=== PATIENT | female | born 1970 | race Asian ===

== ENCOUNTER → 2021-10-26 11:58 | Outpatient (CLI) | payer OTHER, SELFPAY ==
[2021-10-26 13:08] LABS: COVID19 -Nasal RAPID Negative (Negative)
== END ==
PROVIDERS: PCP Internal Medicine; Visit Provider Surgery
DX: Z20.822 Contact with and (suspected) exposure to COVID-19 (principal); Z01.812 Encounter for preprocedural laboratory examination
CPT/HCPCS: 87635; C9803

== ENCOUNTER 2021-10-27 06:56 | Day surgery (SDC) | payer OTHER, SELFPAY ==
[2021-10-25 09:46] VITALS: BMI 21.6
[2021-10-27] VITALS (9 sets, daily range): BP systolic 106–143; BP diastolic 66–87; PULSE 56–85; RESP 12–16; TEMP 36.2–36.6; O2SAT 95–100; BMI 21.6
--- NOTE | 2021-10-27 | PATH_ITS ---
[facility] Accession Number: [id number] . 01 Material submitted: . PART A: breast - RIGHT BREAST PART B: lymph node - RIGHT SENTINEL NODES PART C: breast - ANTERIOR MARGIN . 02 Diagnosis: A. Right Mastectomy and [place] Lymph Node Biopsy: Invasive ductal carcinoma. Please see Cancer Case Summary. . B. Right [place] Nodes: Five lymph nodes negative for metastatic carcinoma by immunohistochemistry (0/5). . C. Anterior Margin: Negative for tumor. . . CANCER CASE SUMMARY . Procedure: Total mastectomy and sentinel lymph node dissection. . Specimen laterality: Right. . Tumor Tumor site: Between the upper innner and lower inner quadrants at 3 o'clock position. . Histologic type: Invasive carcinoma of no special type (ductal). . Histologic grade Glandular / tubular differentiation: Score 3/3. Nuclear pleomorphism: Score 1/3. Mitotic rate: Score 1/3. Overall grade: Grade 1 / low grade (score 5/9). . Tumor size: Greatest dimension of largest invasive focus: 12 mm (slices 14-16, 4 mm thickness / slice). Additional dimensions in millimeters: 12 mm x 8 mm (glass slide). . Tumor focality: Single focus of invasive carcinoma. . Carcinoma in situ: Not identified. . Tumor extent: Skin and nipple are uninvolved. . Lymphovascular invasion: Not identified. . Dermal lymphovascular invasion: Not identified. . Microcalcifications: Not identified. . Treatment effect in the breast: No known presurgical therapy. . Treatment effect in lymph nodes: Not applicable. . Margins Margin status for invasive carcinoma: All margins negative for invasive carcinoma. Distance from invasive carcinoma to closest margin: Inclusive of part C, all margins greater than 10 mm from tumor. . Medial: Greater than 10 mm. Lateral: Greater than 10 mm. Posterior: Greater than 10 mm. Superior: Greater than 10 mm. Inferior: Greater than 10 mm. Anterior: Greater than 10 mm. (Specimen A: slices 15 and 16 are 1-4 mm from the anterior/inferior margin. Additional anterior margin submitted as part C. It is presumed that specimen C is additional tissue from this anterior/inferior region; please correlate with operative findings that additional margin part C is from this anterior/inferior region). . Regional lymph nodes Regional lymph node status: Five lymph nodes negative for tumor (0/5). Number of lymph nodes with macrometastasis (greater than 2 mm): 0. Number of lymph nodes with micrometastasis (greater than 0.2 mm to 2 mm and/or greater than 200 cells: 0. Number of lymph nodes with isolated tumor cells: 0. Size of largest michelle metastatic deposit: Not applicable. . Extranodal extension: Not applicable. . Total number of lymph nodes examined (sentinel and non-sentinel): 5. Number of sentinel nodes examined: 5. . Distant metastasis Distant sites: Cannot be determined. . Pathologic stage classification (pTNM, AJCC 8th Edition): pT1c pN0(i). . Additional findings: Biopsy cavity represent in slice 16; no clip identified at gross examination. Patchy fibrocystic changes. . Special studies: Please see microscopic section. . [facility] 11/03/2021 1241 Local . 02 Electronically signed: . Varsha Johnson MD, Pathologist NPI- [id number] . 01 Gross description: . A. Received in a container of formalin labeled right breast, short stitch superior, long stitch lateral is a 192 gram, 12.5 ML x 13.0 SI x 5.0 cm AP skin-sparing simple right mastectomy. There is an overlying 5.0 x 2.5 cm taveras areola, which has a central 1.5 x 1.0 x 0.5 cm erect nipple. There is a short suture attached to the superior edge of the skin and a long suture attached to the lateral edge of the skin. The breast margins are taveras-yellow and shaggy, and are inked as follows: superior anterior orange, inferior anterior blue, and posterior green. The breast is serially sectioned from lateral to medial into twenty-two separate slices. In the superior inner quadrant of the breast in slices 13 through 18, 2.0 cm from the nipple, in the 3 o'clock position, is an ill-defined 3.0 ML x 1.5 SI x 1.5 cm AP white ill-defined mass. The mass comes to within 0.5 cm of the deep margin, 0.5 cm from the superior anterior and inferior anterior margins. In slice 16, there is a 0.3 cm biopsy cavity, however, no biopsy clip is identified. The uninvolved breast tissue consists of 70 percent white fibrous breast tissue and is mainly composed of yellow lobulated adipose tissue. No additional masses are identified. Inside Barrel Polisher sections are submitted as follows: . A1: Normal appearing breast tissue lateral side of mass from slice 12. A2: Lateral extent of mass from slice 13. A3: Mass from slice 14 with biopsy cavity. A4: Mass from slice 15. A5: Mass from slice 16. A6: Mass from slice 17. A7: Mass from slice 18. A8: Normal appearing breast tissue medial side of mass from slice 19. A9: Random superior outer quadrant. A10: Random inferior outer quadrant. A11: Random superior inner quadrant. A12: Random inferior inner quadrant. A13: Nipple and areola. . B. Received in a container of formalin labeled right sentinel nodes are three fragments of fibrofatty tissue measuring 4.0 x 3.0 x 1.5 cm in aggregate dimension. Six lymph node candidates are identified on cut surfaces ranging in size from 0.2 cm to 2.5 cm. The lymph node candidates are entirely submitted labeled: . B1: One bisected lymph node. B2: Three lymph node candidates. B3: One bisected lymph node. B4-B5: One bisected lymph node. . C. Received in a container of formalin labeled anterior margin, stitch suarez true margin is a 21.0 gram, 6.5 x 5.0 x 1.0 cm portion of fibrofatty breast tissue. There is a suture attached to the true margin, and the true margin is inked blue. The specimen is serially sectioned, and there is fibrofatty breast tissue on cut surfaces. No masses or lesions are identified. Every third section is submitted in a sequential fashion in cassettes C1-C8. ([id number]) /[facility] 10/28/2021 1734 Local . 02 Microscopic: . An immunohistochemistry panel is performed on block A4 to further evaluate the cells of interest. The control stains show appropriate reactivity. . RESULTS: E-cadherin: Positive, consistent with ductal differentiation. D2-40: No definite lymphovascular invasion identified. GATA3: Positive. CK 5/6: Mosaic pattern present in region of interest. ER: Variable pattern in region of interest. P63: Absent in regions of interest. Myosin: Absent in regions of interest. . . The absence of p63 and myosin in the regions of interest mitigates against the presence of in situ carcinoma at these foci. . The diffuse immunopositive LAWANDA-3 staining supports a breast origin. . The mosaic CK 5/6 staining pattern and variable ER pattern mitigates against the presenc of in situ carcinoma at the focus of interest. . . CAP BREAST BIOMARKER REPORTING TEMPLATE: . Estrogen Receptor (ER) Status: Positive. Average intensity of staining: Moderate staining intensity, approximately 90% of tumor nuclei positive. Primary antibody: SP1 Progesterone Receptor (PgR) Status: Positive. Average intensity of staining: Weak to moderate staining, approximately 10% of tumor nuclei positive. Primary antibody: 1E2 HER2 (by immunohistochemistry): Negative at 0+. Percentage of cells with uniform intense complete membrane stainin% Primary antibody: 4B5 . Internal controls are appropriately positive for ER, AL and HER-2. . . Cold Ischemia and Fixation Times: Meets requirements in the latest version of the ASCO/CAP guidelines. Testing performed on Block Number: . TECHNICAL NOTE: The scoring criteria for breast biomarkers by immunohistochemistry is based on the current ASCO/CAP guidelines (Mike et al, Arch Pathol Lab Med 2010: 134(6): 907-922 / Santana YEN et al, Arch Pathol Lab Med 2014: 138(2):241-256). Deparaffinized sections of formalin fixed tissue (along with appropriate positive controls) are incubated with the above antibody(s). Using the automated [place] stainer, tissue is incubated with the designated antibody* which is then localized by a non-biotin, dual polymer detection system. The external controls are reviewed for appropriate reactivity and found to be adequate. Results on the target cell population are indicated above. These tests have not been validated on decalcified tissue. * This test was developed and its performance characteristics determined by [facility]. It has not been cleared or approved by the U.S. Food and Drug Administration. The FDA has determined that such clearance or approval is not necessary. This test is used for clinical purposes. It should not be regarded as investigational or for research. . 02 Pathologist provided ICD-10: C50.911 . 02 CPT . 177530, J19995, L19129, 353718, 051897, 968857, 621394, 835101 Specimen Comment: A courtesy copy of this report has been sent to [phone] Performed at: 01 [facility] [address] [address], [place], [place] [id number] MD Piter Hart MD Phone: [phone] Performed at: 02 [facility] [address] [place], [place] [id number] MD Paulette Patel MD Phone: [phone]
--- NOTE | 2021-10-27 | DI.MG.S_ITS ---
SPECIMEN RIGHT BREAST: 10/27/2021 CLINICAL: Right surgical specimen. Correlation is made to exams dated: 07/06/2021 ultrasound biopsy, 07/06/2021 mammogram, and 06/29/2021 ultrasound - [facility]. A surgical specimen was imaged for the mass located in the right breast at 3 o'clock anterior depth. The mass is found at G-I, 6-8 on the grid. IMPRESSION: SPECIMEN The imaged specimen includes the mass and a biopsy clip. This exam was interpreted at Station ID: [id number]. Camila ruano/:10/27/2021 17:09:39
--- NOTE | 2021-10-27 06:58 | DI.NM.S_ITS ---
PROCEDURE: NM SENTINEL NODE INJECT ONLY RADIOPHARMACEUTICAL: 0.94mCi Millipore filtered Tc-99m sulfur colloid. INDICATIONS: lumpectomy and sentinel lymph node biopsy COMPARISON: None. PROCEDURE: The area around the nipple was prepped and draped in a sterile fashion. Tc-99m sulfur colloid was injected intra-dermally around the outer edge of the areola in the right breast. No image was obtained. IMPRESSION: Administration of radiotracer into the right breast periareolar region for intra-operative sentinel lymph node localization. Dictated by: Carmel Jenkins MD, PhD on 10/27/2021 at 10:28 Approved by: Carmel Jenkins MD, PhD on 10/27/2021 at 10:28
[2021-10-27] MEDS: LACTATED RINGERS 1,000 ML 100 ML IV (07:42)
--- NOTE | 2021-10-27 08:21 | PM.HP.1 ---
History of Present Illness History of Present Illness Date Patient Seen: 10/27/21 Time Patient Seen: 08:21 Chief complaint: OPB Narrative: Tiny Mittal is a 51 year old woman with right breast cancer treatment naive, here for elective right mastectomy with sentinel lymph node biopsy. Feeling well today no complaints. Right Breast-1.4 cm mass 3 o'clock 2 cm from nipple. No axillary abnormality. Pathology-Invasive ductal carcinoma, ER+(3+), NH+(2), Ki-67 Low, HER2 negative, Grade 1/3, no lymphovascular invasion. Patient History Medical History Breast cancer, right Family & Social History Social History: household members family lives independently Yes Tobacco & Substance use: Smoking Status Never smoker alcohol intake current alcohol intake frequency 0-2 drinks per day Substance Use Type does not use Meds Home Medications and Allergies Home Medications Medication Instructions Recorded Confirmed Type multivitamin 1 tab PO DAILY 08/11/21 10/27/21 History omega-3 fatty acids 300 mg capsule 600 mg PO DAILY 08/11/21 10/27/21 History Allergies Allergy/AdvReac Type Severity Reaction Status Date / Time No Known Drug Allergies Allergy Verified 10/27/21 07:22 Exam Vital Signs (past 8 hours): - 10/27/21 07:15 Temperature 97.8 F Pulse Rate 56 L Respiratory Rate 12 Blood Pressure 130/72 Pulse Oximetry 100 Oxygen Delivery Method Room Air Narrative Exam Narrative: Gen-Adult woman alert and oriented no distress Chest-R breast marked with my initials. Assessment & Plan Assessment and plan (1) Breast cancer, right: Qualifiers: Breast location: upper outer quadrant of breast Estrogen receptor status: positive Patient sex: female Qualified Code(s): C50.411 - Malignant neoplasm of upper-outer quadrant of right female breast; Z17.0 - Estrogen receptor positive status [ER+] Status: Acute Assessment & Plan narrative: Tiny Mittal is a 51 year old woman with new diagnosis of right breast cancer treatment naive here today for right mastectomy with sentinel lymph node biopsy. Right Breast-1.4 cm mass 3 o'clock 2 cm from nipple. No axillary abnormality. Pathology-Invasive ductal carcinoma, ER+(3+), NH+(2), Ki-67 Low, HER2 negative, Grade 1/3, no lymphovascular invasion. Technical details were discussed. Operative risks including bleeding, infection, reoccurence damage to surrounding structures discussed. Questions answered and she is in agreement with this plan. Time Spent With Patient Critical Care time: I spent a total of [] minutes of critical care time on this patient's care today; this time is exclusive of procedural time.
[2021-10-27] MEDS: CEFAZOLIN 2 GM/20 ML SYRINGE IV (09:22)
[2021-10-27] MEDS: METHYLENE BLUE 50 MG/10 ML VIAL INJ (09:26)
--- NOTE | 2021-10-27 09:30 | SUR.OPER ---
Supine on padded OR bed, head on pillow, arms secured on padded arm boards at <90 degrees abduction, legs uncrossed, safety belt at thigh, tape over blanket over lower legs.
[2021-10-27] MEDS: BUPIVACAINE 0.25% (PF) VIAL 10 ML INJ (09:45)
--- NOTE | 2021-10-27 11:26 | P.OP_ITS ---
Operative Date/Time/Diagnoses Date of procedure: 10/27/21 Time of procedure: 11:26 Pre-op diagnosis: Right breast cancer Post-op diagnosis: same Procedure & Clinicians Procedure: Right mastectomy and sentinel lymph node biopsy Same procedure as scheduled: Yes Indications: Right breast cancer Surgeon: Billy Gunn Anesthesia Type: General Operative Notes Findings: 2 sentinel lymph nodes 10 second counts 549 and 70 Specimen(s): other (Right breast short stitch superior long stitch lateral, right sentinel lymph nodes, anterior margin stitch suarez the true margin) Estimated Blood Loss (mL): 10 Procedure in detail: Patient was brought to the operating room placed supine on the table. Bilateral lower extremity compression devices were applied. She received 2 g of Ancef prior to skin incision. She was intubated with an endotracheal tube. She was then prepped and draped in sterile fashion. Time-out was performed. I injected 1 mL of methylene blue diluted with 4 ml saline into the periareolar tissue and massaged it into the breast for 5 minutes. An elliptical incision around the nipple areola complex was made with the knife. The subcutaneous tissue was divided with electrocautery. Skin flaps were raised to separate the breast tissue from the skin along the subdermal plexus. The dissection was extended superior to the clavicle, medial to the sternum, inferior the the inframamary fold and lateral to the anterior border of the latisimus dorsi. Next the breast tissue was from the underlying pectoralis fascia. The breast was passed off the field marked short stitch superior long stitch lateral. The anterior flap was thick compared to the others and therefore an additional margin, anterior margin was taken stitch suarez the true margin. The axillary tissue was carefully dissected towards the area of maximal radioactivity. Two sentinel lymph node were identified. The ten second counts were 549 and 70. The lymphatics were clipped with heomolips and transected sharply. I returned the gamma probe to the field there were no pathologically enlarged nodes or significant background activity. A 19 [place] Naldo drain was placed into the cavity and secured. The wound was copiously irrigated and homeostasis was ensured. The mastectomy was closed with 3 0 Vicryl for the subcutaneous tissue and the skin was closed with 4 0 Monocryl followed by the application of Dermabond. Patient tolerated procedure well she emerged from anesthesia was extubated and transferred to recovery room in stable condition. Complications: none Post-operative Condition: stable Disposition: same day surgery
[2021-10-27] MEDS: OXYCODONE IR 5 MG TABLET PO (12:06)
--- NOTE | 2021-10-27 12:48 | SUR.PHASEII ---
discharge instructions reviewed with pt and daughter. both verbalized understanding.
--- NOTE | 2021-10-27 13:01 | SUR.PHASEII ---
Pt awake, alert, steady on feet at bedside. Tolerated cranberry juice. Dressing clean dry and intact.
== END 2021-10-27 13:08 | disposition home or self-care (01) ==
LOC: OR 06:58 → AC 11:19
PROVIDERS: PCP Internal Medicine; Referring Provider Surgery; Visit Provider Surgery
PROC: 0HTT0ZZ Resection of Right Breast, Open Approach (ICD-10-PCS; CPT 19303; principal; 2021-10-27 09:15)
DX: C50.411 Malignant neoplasm of upper-outer quadrant of right female breast (principal); Z17.0 Estrogen receptor positive status [ER+]
CPT/HCPCS: 19303; 38500; 38792; 64450; 76098; A9541; J0131; J0690; J1100; J1170; J1885; J2250; J2704; J3010; Q9968

== ENCOUNTER → 2022-09-14 13:01 | Outpatient (CLI) | payer OTHER, SELFPAY ==
--- NOTE | 2022-09-14 13:03 | DI.RAD.S_ITS ---
PROCEDURE: XR WRIST RT MIN 3V INDICATIONS: eval R wrist pain s/p trauma ulnar aspect 6 months ago TECHNIQUE: 4 views of the wrist were acquired. COMPARISON: None. FINDINGS: Bones: No acute fractures or dislocations. No suspicious bony lesions. There appears to be findings suggesting an old distal right ulnar diaphyseal fracture that is healed. Scaphoid view: Unremarkable Soft tissues: No suspicious soft tissue calcifications. IMPRESSION: No evidence for acute osseous abnormality involving the right wrist. Dictated by: Long Moore M.D. on 09/14/2022 at 13:13 Approved by: Long Moore M.D. on 09/14/2022 at 13:16
== END ==
PROVIDERS: PCP Registered Nurse Diabetes Educator; Referring Provider Registered Nurse Diabetes Educator; Visit Provider Registered Nurse Diabetes Educator
DX: M25.531 Pain in right wrist (principal)
CPT/HCPCS: 73110

== ENCOUNTER → 2023-08-03 16:10 | Outpatient (CLI) | payer OTHER, SELFPAY | PROVIDERS: PCP Registered Nurse Diabetes Educator; Visit Provider Physician Assistant | DX: R10.9 Unspecified abdominal pain (principal) | CPT/HCPCS: 87086 ==

== ENCOUNTER → 2023-08-03 16:36 | Outpatient (CLI) | payer OTHER, SELFPAY ==
[2023-08-03 18:27] LABS: Alanine Aminotransferase 18 IU/L (<35); Albumin 4.5 g/dL (3.5-5.0); Albumin Globulin Ratio 1.4 (1.0-2.8); Alkaline Phosphatase 58 U/L (38-126); Aspartate Aminotransferase 32 IU/L (14-36); BUN Creatinine Ratio 35.9 (6-22); Bilirubin Total 1.2 mg/dL (0.2-1.3); Blood Urea Nitrogen 23 mg/dL (7-17); Calcium 9.5 mg/dL (8.4-10.2); Carbon Dioxide 25 mmol/L (22-32); Chloride 104 mmol/L (98-107); Estimated Glomerular Filt Rate > 60 mL/min (>60); Globulin 3.2 g/dL (1.7-4.1); Glucose 95 mg/dL (70-100); HEMOLYSIS < 15 (0-50); Potassium 3.8 mmol/L (3.4-5.1); Sodium 139 mmol/L (137-145); Total Protein 7.7 g/dL (6.3-8.2)
[2023-08-03 18:31] LABS: Add Manual Diff / Slide Review NO; Basophils Absolute Auto 0 /uL (0-100); Basophils Percent Auto 0.7 % (0-2); Eosinophils Absolute Auto 100 /uL (0-450); Eosinophils Percent Auto 1.3 % (2-4); Hematocrit 37.9 % (36-46); Hemoglobin 12.9 g/dL (12.0-16.0); Lymphocytes Absolute Auto 1500 /uL (1100-4500); Lymphocytes Percent Auto 31.4 % (25-40); Mean Corpuscular Hemoglobin 30.7 PG (26-34); Mean Corpuscular Volume 90.5 fL (80-100); Monocytes Absolute Auto 200 /uL (0-900); Monocytes Percent Auto 4.2 % (3-14); Neutrophils Absolute Auto 2900 /uL (1500-7000); Neutrophils Percent Auto 62.4 % (50-75); Platelet Count 189 X10^3/uL (150-400); Red Blood Cell Count 4.19 X10^6/uL (4.0-5.2); Red Cell Distribution Width 13.1 % (11.6-14.8); White Blood Cell Count 4.7 X10^3/uL (4.5-11.0)
== END ==
PROVIDERS: PCP Registered Nurse Diabetes Educator; Referring Provider Physician Assistant; Visit Provider Physician Assistant
DX: R10.32 Left lower quadrant pain (principal); R31.9 Hematuria, unspecified
CPT/HCPCS: 36415; 80053; 85025; 87086

== ENCOUNTER → 2023-08-16 10:51 | Outpatient (CLI) | payer OTHER, SELFPAY ==
--- NOTE | 2023-08-16 10:52 | DI.CT.S_ITS ---
PROCEDURE: CT ABDOMEN PELVIS W CON INDICATIONS: LLQ pain, UA + for hematuria. Hx breast cancer TECHNIQUE: After the administration of intravenous contrast, axial sections acquired from the lung bases to the pubic symphysis. Coronal and sagittal reformats were performed. For radiation dose reduction, the following was used: automated exposure control, adjustment of mA and/or kV according to patient size. COMPARISON: None. FINDINGS: Image quality: Diagnostic. Lower Chest: No significant findings. ABDOMEN: Liver: 4 mm focus of decreased attenuation in the anterior right hepatic lobe series 2, image 28. Gallbladder: No radiopaque gallstones or wall thickening. Biliary ducts: No biliary dilation. Pancreas: No ductal dilation. Spleen: Size is within normal limits. Adrenal Glands: No adrenal nodules. Kidneys and Ureters: No hydronephrosis. No solid mass. No complex renal cystic lesion which requires follow up. Stomach and Bowel: Normal colonic caliber, without significant wall thickening. Significant colonic stool. No obstruction. Peritoneum: No abnormal intraperitoneal fluid. No free air. Ventral Wall: No significant ventral hernia. Abdominal Nodes: No retroperitoneal or mesenteric adenopathy by size criteria. Vessels: Aorta and inferior vena cava are normal in size. PELVIS: Pelvic Organs: Unremarkable. Bladder: No bladder wall thickening, accounting for underdistention. Pelvic Nodes: No enlarged lymph nodes. Miscellaneous: No inguinal hernias are seen. Bones: No aggressive osseous abnormality. IMPRESSION: Significant colonic stool consistent with constipation. No obstruction. Dictated by: Shante Brito M.D. on 08/16/2023 at 14:20 Approved by: Shante Brito M.D. on 08/16/2023 at 16:57
== END ==
PROVIDERS: PCP Registered Nurse Diabetes Educator; Referring Provider Physician Assistant; Visit Provider Physician Assistant
DX: R31.9 Hematuria, unspecified (principal); R10.32 Left lower quadrant pain
CPT/HCPCS: 74177; Q9967